=== PATIENT | female | born 1990 | race African-American/Black ===

== ENCOUNTER 2019-12-02 15:56 | Emergency (ER) | payer SELFPAY ==
[~2019-12-02] VITALS: Ht 167.6 cm; Wt 64.4 kg
--- NOTE | 2019-12-02 16:27 | NUR ---
[id number]/PD FRM [place] REFUSING TO GET OFF THE BUS. PT AWAKE, EYES OPEN NOT ANSWERING QUESTIONS. PT CALM & COOPERATIVE, AMBULATED TO RESTROOM, URINE COLLECTED & SENT TO LAB. PT SEEN & EVAL'D BY DR. LONGORIA. DERRICK @ BS & WILL CONT TO MONITOR.
--- NOTE | 2019-12-02 16:45 | NUR ---
BUS STARTER @ FOR BLOOD DRAW.
[2019-12-02 17:23] LABS: BASOPHILS % (AUTO) 0.2 % (0.0-2.0); EOSINOPHILS % (AUTO) 0.2 % (0.0-6.0); HEMATOCRIT 38 % (33-45); HEMOGLOBIN 12.5 g/dL (11.5-14.8); LYMPHOCYTES # (AUTO) 1.3 /CMM (0.8-4.8); LYMPHOCYTES % (AUTO) 11.9 % (20.0-44.0); MEAN CORPUSCULAR HGB CONC 33 g/dl (31.0-36.0); MEAN CORPUSCULAR VOLUME 92 fL (82-100); MONOCYTES # (AUTO) 0.8 /CMM (0.1-1.30); MONOCYTES % (AUTO) 7.7 % (2.0-12.0); NEUTROPHILS # (AUTO) 8.5 /CMM (1.8-8.9); PLATELET COUNT (AUTO) 347 /CMM (150-450); WHITE BLOOD COUNT (AUTO) 10.6 K/uL (4.3-11.0)
[2019-12-02 17:32] LABS: APPEARANCE,URINE Clear (CLEAR); BILIRUBIN,URINE Negative (NEGATIVE); BLOOD, URINE Negative Ery/uL (NEGATIVE); COLOR,URINE Yellow (YELLOW); KETONES,URINE Negative (NEGATIVE); LEUKOCYTE ESTERASE ,URINE Negative (NEGATIVE); NITRITE, URINE Negative (NEGATIVE); PROTEIN,URINE 30 mg/dl (NEGATIVE); UGLUCOSE Negative (NEGATIVE); UROBILINOGEN,URINE 0.2 EU/dL (0.2)
[2019-12-02 17:34] LABS: CALCIUM, SERUM 8.3 mg/dL (8.5-10.1); CARBON DIOXIDE 24 mmol/L (21-32); CHLORIDE 102 mmol/L (98-107); CREATININE 0.9 mg/dL (0.6-1.3); GLUCOSE 88 mg/dL (74-106); POTASSIUM 3.6 mmol/L (3.5-5.1); SODIUM SERUM 136 mmol/L (136-145); UREA NITROGEN, BLOOD 9 mg/dL (7-18)
[2019-12-02 17:40] LABS: BACTERIA,URINE Few /HPF (None Seen); RBC,URINE NONE SEEN /HPF (0-2); SQUAMOUS EPITHELIAL CELL,UR Few /HPF (None Seen); WBC,URINE NONE SEEN /HPF (0-3)
[2019-12-02 17:41] LABS: ALANINE AMINOTRANSFERASE 19 U/L (12-78); ALBUMIN 3.8 g/dL (3.4-5.0); ALKALINE PHOSPHATASE 63 U/L (46-116); ASPARTATE AMINOTRANSFERASE 19 U/L (15-37); BILIRUBIN,DIRECT 0.1 mg/dL (0.0-0.2); BILIRUBIN,TOTAL 0.6 mg/dL (0.2-1.0); MUCUS,URINE Moderate /LPF (None Seen); TOTAL PROTEIN, SERUM 7.2 g/dL (6.4-8.2)
[2019-12-02 17:42] LABS: ACETAMINOPHEN < 10 ug/ml (10-30); ALCOHOL, BLOOD < 3 mg/dL (0-0); SALICYLATE < 2.8 mg/dL (2.8-20.0)
[2019-12-02] MEDS ORDERED: OLANZAPINE 10 MG VIAL IM ONE ×2 (18:00→18:01)
--- NOTE | 2019-12-02 18:15 | NUR ---
PT GETTING RESTLESS & TRYING TO LEAVE ED. MEDICATED PER ERMD ORDER. WILL CONT TO MONITOR. DERRICK @ BS.
--- NOTE | 2019-12-02 19:10 | NUR ---
TOOK OVER PT CARE. PT IS RESTING IN BED COMFORTABLY. VSS. NO ACUTE DISTRESS NOTED. SITTER AT BEDSIDE.
--- NOTE | 2019-12-02 22:43 | NUR ---
PT PROVIDED WITH BLANKET. VSS. SITTER AT BEDSIDE.
--- NOTE | 2019-12-03 00:02 | NUR ---
PT ASLEEP. VSS.
--- NOTE | 2019-12-03 03:58 | NUR ---
Pt alert and oriented x 4. Patient is requesting to be discharged home. Patient states that a friend will be picking her up and she will be staying at her house. Pt denies si/hi. Dr feng notified.
--- NOTE | 2019-12-03 04:15 | NUR ---
Pt ok to be discharged home per dr Irene. Patient discharged to home in stable condition. Written and verbal after care instructions given. Patient verbalizes understanding of instruction.
[2019-12-03 06:00] VITALS: BP 119/75
== END 2019-12-03 04:15 | disposition home or self-care (01) ==
LOC: ER 16:03
DX: R46.1 Bizarre personal appearance (principal)
CPT/HCPCS: 36415; 80048; 80076; 80305; 80307; 80329; 81001; 84703; 85025; 96372; 99285; G0480; J3490; 81000-TC